=== PATIENT | female | born 1990 | race Two or more races ===

== ENCOUNTER 2019-03-06 01:06 | Emergency (ER) | payer MEDICAID, OTHER ==
[~2019-03-06] VITALS: Ht 154.9 cm; Wt 61.2 kg
[2019-03-06 02:03] LABS: Basophils # (auto) 0 uL; Eosinophils # (auto) 0 uL; Lymphocytes # (auto) 1.2 uL; Lymphocytes % (auto) 9.9 % (10.0-50.0); Monocytes # (auto) 0.5 uL; Neutrophils # (auto) 10.5 uL; Red Blood Cells 4.77 10^6/uL (4.0-5.20)
[2019-03-06 02:04] LABS: Basophils % (auto) 0.3 % (0.0-2.0); Eosinophils % (auto) 0.2 % (0.0-7.0); Hematocrit 36.8 % (36.0-46.0); Hemoglobin 11.7 g/dL (12.2-16.2); Mean Corpuscular Hemoglobin 24.5 pg (28.0-32.0); Mean Corpuscular Hgb Conc. 31.8 g/dL (32.0-36.0); Mean Corpuscular Volume 77.1 fL (80.0-100.0); Monocytes % (auto) 3.9 % (0.0-12.0); Neutrophils % (auto) 85.7 % (37.0-80.0); Platelet Count (auto) 394 10^3/uL (140-450); Red Cell Distribution Width 16.3 % (11.8-14.3); White Blood Cell 12.2 10^3/uL (4.4-10.8)
[2019-03-06 02:23] LABS: Albumin 3.7 g/dL (3.4-5.0); BUN/Creatinine Ratio 12.9; Calcium 8.4 mg/dL (8.5-10.1)
[2019-03-06 02:26] LABS: Bilirubin, Total 0.2 mg/dL (0.2-1.0); Total Protein 8.3 g/dL (6.4-8.2)
[2019-03-06 04:00] VITALS: BP 103/59
[2019-03-06] MEDS ORDERED: TETANUS-DIPTH-ACEL PERTUSSIS 0.5ML SYRG IM ONE (04:00)
[2019-03-06] MEDS ORDERED: LIDOCAINE W/ EPINEPHRINE 1% 20ML VIAL ID ONE (04:00)
== END 2019-03-06 05:35 | disposition home or self-care (01) ==
LOC: ER 01:07
DX: S01.01XA Laceration without foreign body of scalp, initial encounter (principal); S13.9XXA Sprain of joints and ligaments of unspecified parts of neck, initial encounter; V47.5XXA Car driver injured in collision with fixed or stationary object in traffic accident, initial encounter; Y93.89 Activity, other specified; Y99.8 Other external cause status; Y92.89 Other specified places as the place of occurrence of the external cause
CPT/HCPCS: 12004; 36415; 70450; 70486; 72125; 80053; 85025; 90471; 90715

== ENCOUNTER 2020-02-01 07:50 | Inpatient (IN) | payer MEDICAID ==
[~2020-02-01] VITALS: Ht 30.5 cm; Wt 0.5 kg
[2020-02-01] MEDS ORDERED: PHISODERM TOP SOLN 240ML BTL TOP ONE (08:00)
[2020-02-01] MEDS ORDERED: DERMOPLAST 60ML BOTTLE TOP ONE (08:00)
[2020-02-01] MEDS ORDERED: LACT. RINGERS/OXYTOCIN 20UNITS 1,000 ML IV ONE ×2 (08:01→08:29)
[2020-02-01] MEDS ORDERED: WITCH HAZEL-GLYCERIN PAD TOP ONE (08:01)
[2020-02-01] MEDS ORDERED: PENICILLIN G POT 5MIL/D5 50ML 50 ML IV ONE ×2 (08:08→08:15)
[2020-02-01] MEDS ORDERED: LACTATED RINGER'S 1,000 ML IV SCH (08:13)
[2020-02-01] MEDS ORDERED: WITCH HAZEL-GLYCERIN PAD TOP PRN (08:15)
[2020-02-01] MEDS ORDERED: PHISODERM TOP SOLN 240ML BTL TOP PRN (08:15)
[2020-02-01] MEDS ORDERED: DERMOPLAST 60ML BOTTLE TOP PRN (08:15)
[2020-02-01] MEDS ORDERED: miSOPROStol 100 mcg TAB PO PRN (08:15)
[2020-02-01] MEDS ORDERED: LIDOCAINE 2%HCL (LOCAL ANESTH.) INJ 20ML MDV ONE (08:20)
[2020-02-01] MEDS ORDERED: METHYLERGONOVINE MALEATE 0.2 MG/ML AMP IM ONE (08:20)
[2020-02-01] MEDS ORDERED: ACETAMINOPHEN 325 MG TAB PO PRN (08:30)
[2020-02-01] MEDS ORDERED: miSOPROStol 100 mcg TAB SL ONE (08:30)
[2020-02-01] MEDS ORDERED: miSOPROStol 100 mcg TAB PR ONE (08:30)
[2020-02-01 08:51] LABS: Basophils # (auto) 0 10 ^3/uL (0-0.2); Basophils % (auto) 0.5 % (0.0-2.0); Eosinophils # (auto) 0.1 10 ^3/uL (0-0.8); Hemoglobin 10.1 g/dL (12.2-16.2); Lymphocytes # (auto) 1.3 10 ^3/uL (0.4-5.4); Monocytes # (auto) 0.5 10 ^3/uL (0-1.3); Neutrophils # (auto) 4.5 10 ^3/uL (1.6-8.6)
[2020-02-01 08:53] LABS: Eosinophils % (auto) 1.2 % (0.0-7.0); Hematocrit 31.4 % (36.0-46.0); Lymphocytes % (auto) 19.6 % (10.0-50.0); Mean Corpuscular Hemoglobin 24.5 pg (28.0-32.0); Mean Corpuscular Hgb Conc. 32.1 g/dL (32.0-36.0); Mean Corpuscular Volume 76.4 fL (80.0-100.0); Neutrophils % (auto) 70.7 % (37.0-80.0); Platelet Count (auto) 289 10^3/uL (140-450); Red Cell Distribution Width 16.5 % (11.8-14.3); White Blood Cell 6.4 10^3/uL (4.4-10.8)
[2020-02-01 09:02] LABS: Urine Bacteria NONE SEEN /hpf (None Seen); Urine Blood 2+ /uL (Negative); Urine Mucus FEW (None Seen); Urine Specific Gravity 1.013 (1.001-1.035); Urine WBC 1 /hpf (0 - 5)
[2020-02-01 09:11] LABS: INR 0.92 (0.9-1.15)
[2020-02-01 09:21] LABS: Alcohol, Urine < 3.0 mg/dL (0-10); Amphetamine Screen, Urine POSITIVE (NEGATIVE); Barbiturate Scree,Urine NEGATIVE (NEGATIVE); Benzodiazephine Screen, Urine NEGATIVE (NEGATIVE); Cannabinoid Screen, Urine NEGATIVE (NEGATIVE); Cocaine Screen, Urine NEGATIVE (NEGATIVE); Opiate Scree,Urine NEGATIVE (NEGATIVE); Phencyclidine Screen, Urine NEGATIVE (NEGATIVE)
[2020-02-01] MEDS ORDERED: LACT. RINGERS/OXYTOCIN 20UNITS 1,000 ML IV SCH (09:29)
[2020-02-01 10:50] LABS: Albumin 2.3 g/dL (3.4-5.0); Calcium 8.6 mg/dL (8.5-10.1); Potassium 3.3 mmol/L (3.5-5.1)
[2020-02-01 10:56] LABS: BUN/Creatinine Ratio 8.3; Bilirubin, Total 0.3 mg/dL (0.2-1.0); Total Protein 6.9 g/dL (6.4-8.2)
[2020-02-01 11:00] VITALS: BP 119/69
[2020-02-01] MEDS: IBUPROFEN 600 MG TAB PO PRN ×2 (11:02→21:38)
[2020-02-01] MEDS ORDERED: PENICILLIN G POTASSIUM 2,500,000 UNITS in D5W 5% 50 ML IV SCH (12:15)
[2020-02-01] MEDS: ceFAZolin 1GM/50ML 50 ML IV SCH ×3 (12:22→21:29)
[2020-02-01 14:45] VITALS: BP 97/43
[2020-02-01 19:00] VITALS: BP 91/55
[2020-02-01 23:00] VITALS: BP 89/54
[2020-02-02 02:51] VITALS: BP 102/72
[2020-02-02 04:10] LABS: Rubella Antibodies, IgG <0.90 index (Immune >0.99)
[2020-02-02] MEDS: ceFAZolin 1GM/50ML 50 ML IV SCH (05:25)
[2020-02-02 07:00] VITALS: BP 100/54
[2020-02-02 11:15] VITALS: BP 84/50
[2020-02-02 15:00] VITALS: BP 109/83
[2020-02-02] MEDS ORDERED: MEASLES, MUMPS & RUBELLA VAC(MMRII) 0.5ML SC ONE (15:30)
[2020-02-02] MEDS ORDERED: TETANUS-DIPTH-ACEL PERTUSSIS 0.5ML SYR Tdap IM ONE (15:30)
== END 2020-02-02 16:45 | disposition home or self-care (01) | DRG 560 ==
LOC: LDRP 07:50 → OBSVTOIN 07:50 → LDRP 11:56
PROVIDERS: ADMIT Obstetrics & Gynecology; ATTEND Obstetrics & Gynecology
PROC: 10E0XZZ Delivery of Products of Conception, External Approach (ICD-10-PCS; principal; 2020-02-01)
PROC: 0KQM0ZZ Repair Perineum Muscle, Open Approach (ICD-10-PCS; 2020-02-01)
PROC: 3E0234Z Introduction of Serum, Toxoid and Vaccine into Muscle, Percutaneous Approach (ICD-10-PCS; 2020-02-02)
PROC: 3E0134Z Introduction of Serum, Toxoid and Vaccine into Subcutaneous Tissue, Percutaneous Approach (ICD-10-PCS; 2020-02-02)
DX: O77.0 Labor and delivery complicated by meconium in amniotic fluid (principal); O99.324 Drug use complicating childbirth; F15.90 Other stimulant use, unspecified, uncomplicated; Z37.0 Single live birth; Z23 Encounter for immunization; Z3A.38 38 weeks gestation of pregnancy; O70.1 Second degree perineal laceration during delivery; Z20.828 Contact with and (suspected) exposure to other viral communicable diseases
CPT/HCPCS: 36415; 59025; 59409; 80053; 80307; 81001; 85025; 85610; 85730; 86592; 86703; 86762; 86850; 86900; 86901; 87340; 90715; 96360; 96361; 96365; 96366; 96372; G0378; J0690; J2540; J2590; J7060

== ENCOUNTER 2020-02-02 17:05 | Emergency (ER) | payer MEDICAID | END 2020-02-02 17:15 | disposition left against medical advice (07) | LOC: ER 17:05 | DX: R51 Headache (principal); Z53.21 Procedure and treatment not carried out due to patient leaving prior to being seen by health care provider ==